=== PATIENT | female | born 1970 | race Caucasian/White ===

== ENCOUNTER 2018-07-10 16:44 | Emergency (ER) | payer OTHER ==
[~2018-07-10] VITALS: Ht 152.4 cm; Wt 65.8 kg
[2018-07-10] MEDS ORDERED: ACETAMINOPHEN 325 MG TAB PO ONE (17:00)
[2018-07-10] MEDS ORDERED: SODIUM CHLORIDE 0.9% 1000ML 1,000 ML IV STA (17:35)
[2018-07-10] MEDS ORDERED: FAMOTIDINE 20 MG/2 ML VIAL IV ONE (17:45)
[2018-07-10] MEDS ORDERED: ONDANSETRON HCL INJ 2MG/ML 2ML 2 MG/ML VIAL IV ONE (17:45)
[2018-07-10] MEDS ORDERED: ALBUTEROL/IPRATROPIUM 3 ML NEB NEB ONE (17:45)
[2018-07-10] MEDS ORDERED: KETOROLAC TROMETHAMINE 30 MG/ML VIAL IV ONE (17:45)
--- NOTE | 2018-07-10 18:55 | NUR ---
MULTIPLE WARM BLANKETS, REMOTES, JUICE
[2018-07-10] MEDS ORDERED: AZITHROMYCIN 250 MG TAB PO ONE (19:00)
[2018-07-10] MEDS ORDERED: CEFTRIAXONE SOD 1 GM VIAL IV ONE (19:00)
[2018-07-10] MEDS ORDERED: CEFTRIAXONE SOD 1 GM/NS 50 ML 50 ML IV ONE (19:00)
--- NOTE | 2018-07-10 19:17 | Diagnostic Imaging Report ---
EXAMINATION: CXR 2 VIEW - HOPD INDICATION: Chest pain and cough ^[id number] ^[id number] COMPARISON: None FINDINGS: PA and lateral views TUBES and LINES: None. LUNGS: Lungs are well inflated. Left lower lobe consolidation. No pulmonary edema. PLEURA: No pleural effusion or pneumothorax. HEART AND MEDIASTINUM: The cardiomediastinal silhouette is unremarkable. BONES AND SOFT TISSUES: No acute osseous lesion. Soft tissues are unremarkable. UPPER ABDOMEN: No free air under the diaphragm. IMPRESSION: Left lower lobe pneumonia in the correct clinical context. Recommend follow-up chest radiograph in 6-8 weeks. If findings persist, then recommend CT chest without IV contrast for further evaluation. Signed by: Dr. Terra Tejada M.D. on 07/10/2018 7:14 PM
== END 2018-07-10 19:28 | disposition home or self-care (01) ==
LOC: FSED 16:44
DX: R50.9 Fever, unspecified (principal); R05 Cough; J15.9 Unspecified bacterial pneumonia; M06.9 Rheumatoid arthritis, unspecified
CPT/HCPCS: 71046; 80053; 81003; 83518; 85025; 87400; 99284; J0696; J1885; J2405; J7030